=== PATIENT | male | born 1995 | race Caucasian/White ===

== ENCOUNTER 2020-05-08 16:39 | Emergency (ER) | payer OTHER ==
[~2020-05-08] VITALS: Ht 188 cm; Wt 99.8 kg
[2020-05-08] MEDS ORDERED: ALPR1 PO (17:26)
== END 2020-05-08 17:40 | disposition home or self-care (01) ==
LOC: ER 16:39
DX: F41.9 Anxiety disorder, unspecified (principal); Z88.4 Allergy status to anesthetic agent
CPT/HCPCS: 99282; A9270